=== PATIENT | male | born 1960 | race Caucasian/White ===

== ENCOUNTER 2021-01-01 05:00 | Emergency (ER) | payer OTHER ==
[~2021-01-01] VITALS: Ht 188 cm; Wt 84.5 kg
[~2021-01-01 05:00] MED LIST: ADVAIR 250-501 EAC1 INH; ALLER-CHLOR4 MG PO; BISOPROLOL-HCT1 EAC1 PO; CELEXA20 MG PO; FLUTICASONE PRO16 GM NASAL; LIPITOR20 MG PO; NORVASC10 MG PO; SINGULAIR10 MG PO; TESSALON PERLE100 MG PO; VENTOLIN HFA [SP8 GM INH; VITAMIN E200 UNI1 PO; XALATAN 0.0052.5 ML LEFT EYE; XARELTO20 MG PO
[2021-01-01 05:07] VITALS: Ht 188 cm; Wt 84.5 kg
[2021-01-01] MEDS ORDERED: TOPROL XL25 MG PO (05:09)
[2021-01-01] MEDS ORDERED: EPLERENONE25 MG PO (05:10)
[2021-01-01 05:30] LABS: BASOPHILS 0.1 % (0-2); EOSINOPHILS 3.5 % (0-7); HEMATOCRIT 41.1 % (42.0-54.0); HEMOGLOBIN 13.7 g/dL (13.5-17.5); IMMATURE GRANULOCYTES 0.1 % (0-5); LYMPHOCYTE ABS# 1.36 10x3/uL (1.32-3.57); LYMPHOCYTES 18.9 % (15-50); MCH 30.2 pg (26.0-34.0); MCHC 33.3 g/dL (31.0-37.0); MCV 90.7 fL (80.0-100.0); MEAN PLATELET VOLUME 8.9 fL (7.4-10.4); MONOCYTES 13.4 % (2-11); PLATELET COUNT 210 10x3/uL (130-400); RBC 4.53 10x6/uL (4.20-6.10); RDW 13.3 % (11.5-14.5); WBC 7.2 10x3/uL (4.8-10.8)
[2021-01-01 05:37] LABS: APTT 25.6 SECONDS (22.8-39.4); CALC OSMOLALITY 282 mosm/kg (275-300); CALCIUM 8.9 mg/dL (8.5-10.1); CARBON DIOXIDE 25.8 mmol/L (21.0-32.0); CHLORIDE - SERUM 107 mmol/L (98-107); CREATININE - SERUM 1.2 mg/dL (0.6-1.3); GLUCOSE 107 mg/dL (74-106); INR 1.03 (0.85-1.17); POTASSIUM - SERUM 3.8 mmol/L (3.5-5.1); PROTIME 12.4 SECONDS (11.6-15.0); SODIUM 139 mmol/L (136-145); UREA NITROGEN 27 mg/dL (7-18); eGFR NON AFRICAN AMERICAN 66 mL/min (90-120)
[2021-01-01 06:01] LABS: ALBUMIN 3.8 g/dL (3.4-5.0); ALKALINE PHOSPHATASE 88 U/L (30-120); ALT (SGPT) 22 U/L (10-68); BILIRUBIN - TOTAL 0.28 mg/dL (0.2-1.3); CKMB 1.1 U/L (0.0-3.6); CREATINE KINASE 166 UL (21-232)
[2021-01-01 06:03] LABS: TROPONIN-I < 0.017 ng/mL (0.000-0.060)
[2021-01-01 06:27] VITALS: BP 126/75
== END 2021-01-01 06:22 | disposition home or self-care (01) ==
LOC: D.ER 05:00
PROVIDERS: Family Medicine
DX: R00.2 Palpitations (principal)